=== PATIENT | female | born 1975 | race Hispanic/Latino ===

== ENCOUNTER 2020-12-21 14:47 | Observation (INO) | payer BC ==
[~2020-12-21] VITALS: Ht 164 cm; Wt 92.1 kg
[2020-12-21] MEDS ORDERED: SODIUM CHLORIDE 0.9% 1000ML 1,000 ML IV SCH (15:15)
[2020-12-21 15:25] VITALS: BP 135/77
[2020-12-21 17:27] VITALS: BP 129/74
[2020-12-21 17:32] VITALS: BP 134/77
[2020-12-21 17:42] VITALS: BP 120/73
[2020-12-21] MEDS ORDERED: FERR-82 PO (17:43)
[2020-12-21 19:45] VITALS: BP 128/78
[2020-12-21 23:45] VITALS: BP 131/74
[2020-12-22 01:10] LABS: HEMATOCRIT 27.7 % (36-48)
[2020-12-22 03:45] VITALS: BP 121/73
[2020-12-29] MEDS ORDERED: NORG1TAB75 PO (11:37)
== END 2020-12-22 07:00 | disposition home or self-care (01) ==
LOC: UNDOADMOB 14:47 → WSH 14:47
PROVIDERS: ADMIT Obstetrics & Gynecology; ATTEND Obstetrics & Gynecology
DX: D64.9 Anemia, unspecified (principal)
CPT/HCPCS: 36415; 36430 ×2; 85014 ×2; 85018 ×2; G0378 ×9; J7030; P9016 ×2

== ENCOUNTER 2021-01-04 05:30 | Observation (INO) | payer BC ==
[2020-12-21 09:53] LABS: BASOPHILS % (AUTO) 0.4 % (0.0-5.0); EOSINOPHILS % (AUTO) 1.7 % (0.0-8.0); HEMATOCRIT 23.4 % (36-48); LYMPHOCYTES % (AUTO) 20.9 % (21.0-51.0); MEAN CORPUSCULAR HEMOGLOBIN 26.4 pg (27.0-33.0); MEAN CORPUSCULAR HGB CONC 29.1 g/dL (32.0-36.0); MEAN CORPUSCULAR VOLUME 90.7 fL (79-99); MONOCYTES % (AUTO) 5.4 % (3.0-13.0); NEUTROPHILS % (AUTO) 70.9 % (40.0-77.0); NUCLEATED RED BLOOD CELLS 0.3 % (0.0-0.19); PLATELET COUNT (AUTO) 279 K/uL (130-400); RED BLOOD CELL COUNT(AUTO) 2.58 MIL/uL (4.00-5.50); RED CELL DISTRIBUTION WIDTH 16.2 % (11.0-15.5); WHITE BLOOD COUNT (AUTO) 7.6 K/uL (4.8-10.8)
[2020-12-27 11:41] VITALS: BP 111/62
[2020-12-31 12:55] LABS: BASOPHILS % (AUTO) 0.5 % (0.0-5.0); EOSINOPHILS % (AUTO) 1.8 % (0.0-8.0); HEMATOCRIT 39.4 % (36-48); LYMPHOCYTES % (AUTO) 19.6 % (21.0-51.0); MEAN CORPUSCULAR HEMOGLOBIN 28.5 pg (27.0-33.0); MEAN CORPUSCULAR HGB CONC 30.7 g/dL (32.0-36.0); MEAN CORPUSCULAR VOLUME 92.7 fL (79-99); MONOCYTES % (AUTO) 3.9 % (3.0-13.0); NEUTROPHILS % (AUTO) 73.8 % (40.0-77.0); PLATELET COUNT (AUTO) 308 K/uL (130-400); RED BLOOD CELL COUNT(AUTO) 4.25 MIL/uL (4.00-5.50); RED CELL DISTRIBUTION WIDTH 18.2 % (11.0-15.5); WHITE BLOOD COUNT (AUTO) 9.5 K/uL (4.8-10.8)
[2021-01-03] MEDS: CEFAZOLIN SODIUM 1 GM VIAL IVP SCH (05:00)
[~2021-01-04] VITALS: Ht 165.1 cm; Wt 93.2 kg
[2021-01-04] VITALS (21 sets, daily range): BP systolic 125–152; BP diastolic 65–89
[2021-01-04] MEDS: CEFAZOLIN SODIUM 1 GM VIAL IVP SCH ×2 (05:00→20:01)
[~2021-01-04 05:30] MED LIST: FERR-82 PO; NORG1TAB75 PO
[2021-01-04] MEDS ORDERED: LACTATED RINGERS 1000ML 1,000 ML IV ONE (05:58)
[2021-01-04] MEDS ORDERED: MORPHINE PF 100MG/10ML AMP IV ONE (06:34)
[2021-01-04] MEDS ORDERED: MAGNESIUM SULFATE 1 GM/2 ML VIAL ONE (06:34)
[2021-01-04] MEDS ORDERED: KETAMINE 50MG/ML SYRINGE 50 MG/ML DISP.SYRIN IV ONE (06:34)
[2021-01-04] MEDS ORDERED: LIDOCAINE PF 100MG/5ML (2%) SYRINGE 5ML ONE (06:36)
[2021-01-04] MEDS ORDERED: PROPOFOL 10 MG/ML 20ML VIAL IV ONE (06:37)
[2021-01-04] MEDS ORDERED: ONDANSETRON 4MG INJ ONE ×2 (06:37→09:23)
[2021-01-04] MEDS ORDERED: MIDAZOLAM HCL 1 MG/ML 2ML VIAL ONE (06:37)
[2021-01-04] MEDS ORDERED: ROCURONIUM 10MG/1ML SYR 10 MG/ML ML ONE ×2 (06:37→08:07)
[2021-01-04] MEDS ORDERED: FENTANYL CITRATE PF 50 MCG/1 ML 2ML VIAL ONE ×3 (06:38→09:25)
[2021-01-04] MEDS ORDERED: ALBUTEROL INHALER 90MCG/INH IH ONE (07:47)
[2021-01-04] MEDS ORDERED: EPHEDRINE SULFATE 50 MG/ML AMPULE ONE (07:50)
[2021-01-04] MEDS ORDERED: DEXAMETHASONE SOD PHOSPHATE 10MG/ML 1ML VIAL ONE (07:51)
[2021-01-04] MEDS ORDERED: DiphenhydrAMINE HCL 50 MG/ML VIAL ONE (07:52)
[2021-01-04] MEDS ORDERED: FENTANYL CITRATE PF 50 MCG/1 ML 5ML AMP IV ONE (07:55)
[2021-01-04] MEDS ORDERED: GLYCOPYRROLATE 1 MG/5 ML SYRINGE ONE (08:57)
[2021-01-04] MEDS ORDERED: NEOSTIGMINE 5MG/5ML SYR IV ONE (08:57)
[2021-01-04] MEDS ORDERED: KETOROLAC 30MG VIAL (30MG/ML) ONE (09:22)
[2021-01-04] MEDS ORDERED: MEPERIDINE-PF 25 MG/ML SYG ONE ×2 (09:26→09:51)
[2021-01-04] MEDS ORDERED: HYDROMORPHONE 1 MG INJ ONE ×2 (09:34→09:50)
[2021-01-04] MEDS ORDERED: PROMETHAZINE HCL 25 MG/ML 1ML AMPULE IM PRN (10:45)
[2021-01-04] MEDS ORDERED: ONDANSETRON 4MG INJ IVP PRN (10:45)
[2021-01-04] MEDS ORDERED: DOCUSATE SODIUM 100 MG CAP PO PRN (10:45)
[2021-01-04] MEDS ORDERED: IBUPROFEN 600 MG TABLET PO PRN (10:45)
[2021-01-04] MEDS ORDERED: BISACODYL 10 MG SUPP.RECT RC PRN (10:45)
[2021-01-04] MEDS: DEXTROSE 5 %-0.45 % NACL 1,000 ML IV PRN ×2 (11:01→19:02)
[2021-01-04] MEDS: ACETAMINOPHEN WITH CODEINE 1 TAB TAB PO PRN ×3 (11:43→22:12)
[2021-01-04] MEDS: PROMETHAZINE HCL 25 MG/ML 1ML AMPULE IM PRN ×2 (13:32→18:10)
[2021-01-04] MEDS: MEPERIDINE-PF 75 MG/ML SYG IM PRN ×2 (13:33→18:11)
[2021-01-04] MEDS: SIMETHICONE 80 MG TAB.CHEW PO PRN (22:11)
[2021-01-05] MEDS: DEXTROSE 5 %-0.45 % NACL 1,000 ML IV PRN (03:19)
[2021-01-05] MEDS: ACETAMINOPHEN WITH CODEINE 1 TAB TAB PO PRN ×2 (03:49→07:57)
[2021-01-05 03:50] VITALS: BP 139/87
[2021-01-05] MEDS: CEFAZOLIN SODIUM 1 GM VIAL IVP SCH (05:11)
[2021-01-05 06:20] LABS: HEMATOCRIT 36.9 % (36-48); MEAN CORPUSCULAR HEMOGLOBIN 28.3 pg (27.0-33.0); MEAN CORPUSCULAR HGB CONC 30.6 g/dL (32.0-36.0); MEAN CORPUSCULAR VOLUME 92.3 fL (79-99); RED CELL DISTRIBUTION WIDTH 17.9 % (11.0-15.5); WHITE BLOOD COUNT (AUTO) 9.2 K/uL (4.8-10.8)
[2021-01-05 07:24] VITALS: BP 138/75
[2021-01-05] MEDS: SIMETHICONE 80 MG TAB.CHEW PO PRN ×2 (07:57→12:11)
[2021-01-05] MEDS ORDERED: HYDROCODONE/ACETAMINOPHEN 5/325 MG TAB PO PRN (08:00)
[2021-01-05 11:31] VITALS: BP 142/80
[2021-01-05] MEDS ORDERED: IBUPROFEN 800 MG TAB PO PRN (12:00)
[2021-01-05] MEDS ORDERED: ACETAMINOPHEN WITH CODEINE 1 TAB TAB PO PRN (12:00)
== END 2021-01-05 13:35 | disposition home or self-care (01) ==
LOC: DAH 05:30 → WSH 10:35 → DAH 11:08
PROVIDERS: ADMIT Obstetrics & Gynecology; ATTEND Obstetrics & Gynecology
DX: N92.1 Excessive and frequent menstruation with irregular cycle (principal); Z20.822 Contact with and (suspected) exposure to COVID-19; D25.9 Leiomyoma of uterus, unspecified; D50.9 Iron deficiency anemia, unspecified
CPT/HCPCS: 36415 ×4; 58554; 85025 ×2; 85027; 86850 ×2; 86900 ×2; 86901 ×2; 86923; 96360; 96361 ×2; 96372; A4215 ×2; A4221; A4222; A4223; A4344; A4351; A4510; A4600; A4649 ×2; A4663; A6260; C1769 ×2; C9803 ×2; G0378 ×27; J0690; J1100; J1170 ×2; J1200; J1885; J2001; J2175 ×4; J2250; J2274; J2405 ×2; J2550 ×2; J2704; J2710; J3010 ×4; J3475; J3490 ×2; J7030; J7120; U0003 ×2; P9016